=== PATIENT | male | born 1990 | race Caucasian/White ===

== ENCOUNTER 2022-08-10 17:49 | Emergency (ER) | payer OTHER ==
[~2022-08-10] VITALS: Ht 170.2 cm; Wt 104.5 kg
[~2022-08-10 17:49] MED LIST: IBUP100S44 PO; LIDO1DIS2 TD; LYRI75CA PO; PERC7.5T PO; VALI5TAB PO; [UNRECOGNIZED DRUG - REMARK] TD
[2022-08-10] MEDS ORDERED: KETOROLAC 30 MG/ML 1ML VIAL IV ONE (19:40)
[2022-08-10] MEDS ORDERED: OXYCODONE/APAP 5MG/325MG(HOME DOSE PACK) PO ONE (20:45)
[2022-08-10] MEDS ORDERED: MIRA3350 PO (20:45)
[2022-08-10] MEDS ORDERED: PERC5TAB12 PO (20:45)
[2022-08-10 21:20] VITALS: BP 145/76
== END 2022-08-10 21:21 | disposition home or self-care (01) ==
LOC: EDBD 17:49 → M ED 17:49
DX: S82.001A Unspecified fracture of right patella, initial encounter for closed fracture (principal); W17.4XXA Fall from dock, initial encounter; F17.200 Nicotine dependence, unspecified, uncomplicated; M54.50 Low back pain, unspecified; Z88.0 Allergy status to penicillin; Z88.6 Allergy status to analgesic agent; Y92.9 Unspecified place or not applicable; Y93.9 Activity, unspecified; Y99.0 Civilian activity done for income or pay
CPT/HCPCS: 73564; 73590; 96374; 99284; J1885

== ENCOUNTER 2023-11-03 10:41 | Emergency (ER) | payer OTHER ==
[~2023-11-03] VITALS: Ht 170.2 cm; Wt 95.4 kg
[~2023-11-03 10:41] MED LIST changes: +MIRA3350 PO; +PERC5TAB12 PO
[2023-11-03] MEDS ORDERED: TRAM50TA2 PO (10:53)
[2023-11-03] MEDS ORDERED: DOXY50CA51 PO (10:54)
[2023-11-03 11:49] LABS: BASO % 0.4 % (0.0-1.0); EOS # 0.2 10^3/uL (0.0-0.5); EOS % 2.1 % (0.0-3.0); HEMATOCRIT 42.4 % (42.0-52.0); HEMOGLOBIN 14.6 g/dl (13.5-17.5); LYMPH % 42.6 % (24.0-44.0); MEAN CORPUSCULAR HEMOGLOBIN 30.5 pg (27.0-33.0); MEAN CORPUSCULAR HGB CONC 34.4 g/dl (32.0-36.5); MEAN CORPUSCULAR VOLUME 88.7 fl (80.0-96.0); MONO # 0.4 10^3/uL (0.0-0.8); MONO % 5.9 % (2.0-8.0); NEUTROPHILS # 3.4 10^3/uL (1.5-8.5); NEUTROPHILS % 48.9 % (36.0-66.0); PLATELET COUNT, AUTOMATED 264 10^3/uL (150-450); RED BLOOD COUNT 4.78 10^6/uL (4.30-6.10)
[2023-11-03 12:12] LABS: BLOOD UREA NITROGEN 13 MG/DL (9-23); CALCIUM LEVEL 9.3 MG/DL (8.5-10.1); CARBON DIOXIDE LEVEL 29 MMOL/L (20-31); CHLORIDE LEVEL 106 MMOL/L (98-107); CREATININE FOR GFR 0.98 MG/DL (0.70-1.30); GLOMERULAR FILTRATION RATE > 60.0 (>60); GLUCOSE, FASTING 96 MG/DL (60-100); POTASSIUM SERUM 4.6 MMOL/L (3.5-5.1); SODIUM LEVEL 139 MMOL/L (136-145)
[2023-11-03] MEDS: KETOROLAC 30 MG/ML 1ML VIAL IV ONE (12:33)
[2023-11-03] MEDS ORDERED: IBUP-1022 PO (13:40)
[2023-11-03] MEDS ORDERED: PERC5TAB12 PO (13:41)
[2023-11-03] MEDS ORDERED: FLOM0.4C39 PO (13:43)
[2023-11-03] MEDS: TAMSULOSIN 0.4 MG CAP PO ONE (13:58)
[2023-11-03] MEDS: PERCOCET 5MG/325MG TAB PO ONE (13:59)
[2023-11-03 14:06] VITALS: BP 135/64; TEMP 98.1; O2SAT 99
== END 2023-11-03 14:10 | disposition home or self-care (01) ==
LOC: M ED 10:41
DX: N50.811 Right testicular pain (principal); N23 Unspecified renal colic; R31.9 Hematuria, unspecified; F17.200 Nicotine dependence, unspecified, uncomplicated; F10.10 Alcohol abuse, uncomplicated; Z88.0 Allergy status to penicillin; Z88.5 Allergy status to narcotic agent; Z79.1 Long term (current) use of non-steroidal anti-inflammatories (NSAID); Z79.891 Long term (current) use of opiate analgesic; Z79.899 Other long term (current) drug therapy
CPT/HCPCS: 74176; 76870; 80048; 81001; 85025; 93976; 96374; 99284; J1885

== ENCOUNTER → 2023-11-10 | Outpatient (REF) | payer OTHER ==
[~2023-11-10] MED LIST changes: +DOXY50CA51 PO; +FLOM0.4C39 PO; +IBUP-1022 PO; +TRAM50TA2 PO
== END ==
LOC: M LABSMT 11:45
PROVIDERS: ATTEND Urology
DX: N50.811 Right testicular pain (principal)

== ENCOUNTER 2023-11-23 06:10 | Day surgery (SDC) | payer OTHER ==
[~2023-11-23] VITALS: Ht 170.2 cm; Wt 95.3 kg
[~2023-11-23 06:10] MED LIST changes: +AMPH1CAP16 PO; +BUSP10TA PO; +LOSA100T46 PO; +OMEP40CA5 PO; +ROSU10TA6 PO; +TEST1GEL10 SQ
[2023-11-23] MEDS ORDERED: LIDOCAINE 1% SDV 5ML VIAL SC PRN (06:30)
[2023-11-23] MEDS ORDERED: MIDAZOLAM INJ 2MG/2ML VIAL As Ordered ONE (07:00)
[2023-11-23] MEDS ORDERED: fentaNYL 100 MCG/2 ML INJECTION As Ordered ONE (07:00)
[2023-11-23] MEDS ORDERED: LIDOCAINE 2% 100MG/5ML SDV (FOR ANES.) As Ordered ONE (07:01)
[2023-11-23] MEDS ORDERED: ONDANSETRON 4MG 2ML VIAL As Ordered ONE (07:01)
[2023-11-23] MEDS: LR 1,000 ML IV SCH (07:01)
[2023-11-23] MEDS ORDERED: propofoL 200 MG/20 ML VIAL As Ordered ONE (07:01)
[2023-11-23] MEDS ORDERED: KETOROLAC 60MG 2ML VIAL As Ordered ONE (07:01)
[2023-11-23] MEDS ORDERED: BACITRACIN OINTMENT 30GM TUBE As Ordered ONE (07:11)
[2023-11-23] MEDS: LIDOCAINE 1% SDV 30ML VIAL As Ordered ONE (07:11)
[2023-11-23] MEDS: ceFAZolin SOD 2 GM in IV 1 EA IV ONE (07:44)
[2023-11-23] MEDS ORDERED: ACETAMINOPHEN 1000MG 100ML IV BAG As Ordered ONE (07:46)
[2023-11-23] MEDS ORDERED: fentaNYL 100 MCG/2 ML INJECTION IV PRN (08:20)
[2023-11-23] MEDS ORDERED: LR 1,000 ML IV SCH (08:20)
[2023-11-23] MEDS ORDERED: ONDANSETRON 4MG 2ML VIAL IV PRN (08:20)
[2023-11-23] MEDS ORDERED: HYDR-3713 PO (08:22)
[2023-11-23] MEDS: oxyCODONE 5MG TAB PO PRN (08:53)
[2023-11-23] MEDS: HYDROMORPHONE HCL 0.5 MG/ 0.5 ML SYRINGE IV PRN (09:03)
[2023-11-23 10:12] VITALS: BP 137/78; TEMP 97.5; O2SAT 99
== END 2023-11-23 10:26 | disposition home or self-care (01) ==
LOC: M SDC 06:10
PROVIDERS: ATTEND Urology
DX: Q55.22 Retractile testis (principal); N50.811 Right testicular pain; I10 Essential (primary) hypertension; E78.5 Hyperlipidemia, unspecified; G47.33 Obstructive sleep apnea (adult) (pediatric); Z79.899 Other long term (current) drug therapy; Z88.0 Allergy status to penicillin; Z88.5 Allergy status to narcotic agent
CPT/HCPCS: 54640; 54840; J0131; J0665; J0690; J1100; J1170; J1885; J2250; J2405; J3010

== ENCOUNTER → 2023-11-28 | Outpatient (REF) | payer OTHER ==
[~2023-11-28] MED LIST changes: +HYDR-3713 PO
[2023-11-28 17:51] LABS: APPEARANCE, URINE CLEAR (CLEAR); BACTERIA, URINE AUTO NEGATIVE (NEGATIVE); BILIRUBIN, URINE AUTO NEGATIVE (NEGATIVE); BLOOD, URINE BLOOD NEGATIVE (NEGATIVE); COLOR, URINE YELLOW (YELLOW); GLUCOSE, URINE (UA) AUTO NEGATIVE (NEGATIVE); KETONE, URINE AUTO NEGATIVE (NEGATIVE); LEUKOCYTE ESTERASE, URINE AUTO TRACE (NEGATIVE); NITRITE, URINE AUTO NEGATIVE (NEGATIVE); PROTEIN, URINE AUTO NEGATIVE (NEGATIVE); RBC, URINE AUTO 0 /HPF (0-3); SPECIFIC GRAVITY URINE AUTO 1.024 (1.002-1.035); SQUAMOUS EPITHELIAL CELL UR AU 0 /HPF (0-6); WBC, URINE AUTO 2 /HPF (0-3)
== END ==
LOC: M SMT 17:09
PROVIDERS: ATTEND Urology
DX: R35.0 Frequency of micturition (principal)

== ENCOUNTER → 2023-12-07 | Outpatient (REF) | payer OTHER ==
[~2023-12-07] MED LIST changes: +MACR100C43 PO; +OXYB5TAB14 PO; +PYRI1TAB5 PO
== END ==
LOC: M SMT 09:58
PROVIDERS: ATTEND Physician Assistant
DX: N50.811 Right testicular pain (principal)

== ENCOUNTER → 2023-12-08 | Outpatient (REF) | payer OTHER ==
[2023-12-08 17:19] LABS: APPEARANCE, URINE CLEAR (CLEAR); BACTERIA, URINE AUTO NEGATIVE (NEGATIVE); BILIRUBIN, URINE AUTO NEGATIVE (NEGATIVE); BLOOD, URINE BLOOD NEGATIVE (NEGATIVE); COLOR, URINE YELLOW (YELLOW); GLUCOSE, URINE (UA) AUTO NEGATIVE (NEGATIVE); KETONE, URINE AUTO NEGATIVE (NEGATIVE); LEUKOCYTE ESTERASE, URINE AUTO NEGATIVE (NEGATIVE); NITRITE, URINE AUTO NEGATIVE (NEGATIVE); PROTEIN, URINE AUTO NEGATIVE (NEGATIVE); RBC, URINE AUTO 4 /HPF (0-3); SPECIFIC GRAVITY URINE AUTO 1.019 (1.002-1.035); SQUAMOUS EPITHELIAL CELL UR AU 0 /HPF (0-6); UROBILINOGEN, URINE AUTO 0.2 mg/dL (0.0-2.0); WBC, URINE AUTO 1 /HPF (0-3)
== END ==
LOC: M SMT 15:36
PROVIDERS: ATTEND Physician Assistant
DX: Z01.818 Encounter for other preprocedural examination (principal)

== ENCOUNTER 2023-12-11 09:38 | Day surgery (SDC) | payer OTHER ==
[~2023-12-11] VITALS: Ht 170.2 cm; Wt 97.1 kg
[~2023-12-11 09:38] MED LIST changes: -MACR100C43 PO; -OXYB5TAB14 PO; -PYRI1TAB5 PO
[2023-12-11] MEDS: PERCOCET 5MG/325MG TAB PO ONE (12:26)
[2023-12-11] MEDS ORDERED: fentaNYL 100 MCG/2 ML INJECTION As Ordered ONE (13:46)
[2023-12-11] MEDS ORDERED: MIDAZOLAM INJ 2MG/2ML VIAL As Ordered ONE (13:46)
[2023-12-11] MEDS ORDERED: propofoL 200 MG/20 ML VIAL As Ordered ONE (13:46)
[2023-12-11] MEDS ORDERED: ONDANSETRON 4MG 2ML VIAL As Ordered ONE (13:46)
[2023-12-11] MEDS ORDERED: LIDOCAINE 2% 100MG/5ML SDV (FOR ANES.) As Ordered ONE (13:46)
[2023-12-11] MEDS: ceFAZolin 2 GM/D5W 50 ML IV BAG As Ordered ONE (14:15)
[2023-12-11] MEDS: ISOVUE-300 61% 100ML VIAL As Ordered ONE (14:20)
[2023-12-11] MEDS ORDERED: ACETAMINOPHEN 1000MG 100ML IV BAG As Ordered ONE (14:30)
[2023-12-11] MEDS ORDERED: KETOROLAC 60MG 2ML VIAL As Ordered ONE (14:35)
[2023-12-11] MEDS ORDERED: PYRI1TAB5 PO (14:48)
[2023-12-11] MEDS ORDERED: MACR100C43 PO (14:48)
[2023-12-11] MEDS ORDERED: OXYB5TAB14 PO (14:48)
[2023-12-11] MEDS ORDERED: HYDR-3713 PO (14:48)
[2023-12-11] MEDS ORDERED: ONDANSETRON 4MG 2ML VIAL IV PRN (14:55)
[2023-12-11] MEDS ORDERED: fentaNYL 100 MCG/2 ML INJECTION IV PRN (14:55)
[2023-12-11] MEDS ORDERED: LR 1,000 ML IV SCH (14:55)
[2023-12-11] MEDS: oxyCODONE 5MG TAB PO PRN (15:13)
[2023-12-11] MEDS: HYDROMORPHONE HCL 0.5 MG/ 0.5 ML SYRINGE IV PRN (15:17)
[2023-12-11] MEDS: oxyBUTYnin 5 MG TAB PO PRN (15:18)
[2023-12-11 16:27] VITALS: BP 125/60; TEMP 97.3; O2SAT 98
== END 2023-12-11 16:38 | disposition home or self-care (01) ==
LOC: M SDC 09:38
PROVIDERS: ATTEND Urology
DX: N20.1 Calculus of ureter (principal); I10 Essential (primary) hypertension; E78.5 Hyperlipidemia, unspecified; F17.218 Nicotine dependence, cigarettes, with other nicotine-induced disorders; F90.9 Attention-deficit hyperactivity disorder, unspecified type; K21.9 Gastro-esophageal reflux disease without esophagitis; Z79.899 Other long term (current) drug therapy; Z88.0 Allergy status to penicillin; Z88.5 Allergy status to narcotic agent
CPT/HCPCS: 52332; 52352; 76000; 82365; C1769; C2617; J0131; J0690; J1100; J1170; J1885; J2250; J2405; J3010; Q9967

== ENCOUNTER → 2024-08-30 | Outpatient (REF) | payer OTHER, BC ==
[~2024-08-30] MED LIST changes: +DOXY50CA50 PO; -DOXY50CA51 PO; +MACR100C43 PO; +OXYB5TAB14 PO; +PYRI1TAB5 PO; -ROSU10TA6 PO; +ROSU10TA61 PO; +TEST10GE SQ; -TEST1GEL10 SQ
[2024-08-30 18:44] LABS: APPEARANCE, URINE CLEAR (CLEAR); BACTERIA, URINE AUTO NEGATIVE (NEGATIVE); BILIRUBIN, URINE AUTO NEGATIVE (NEGATIVE); BLOOD, URINE BLOOD NEGATIVE (NEGATIVE); COLOR, URINE YELLOW (YELLOW); GLUCOSE, URINE (UA) AUTO NEGATIVE (NEGATIVE); KETONE, URINE AUTO NEGATIVE (NEGATIVE); LEUKOCYTE ESTERASE, URINE AUTO TRACE (NEGATIVE); NITRITE, URINE AUTO NEGATIVE (NEGATIVE); PROTEIN, URINE AUTO NEGATIVE (NEGATIVE); RBC, URINE AUTO 1 /HPF (0-3); SPECIFIC GRAVITY URINE AUTO 1.015 (1.002-1.035); SQUAMOUS EPITHELIAL CELL UR AU 0 /HPF (0-6); UROBILINOGEN, URINE AUTO 0.2 mg/dL (0.0-2.0); WBC, URINE AUTO 0 /HPF (0-3)
== END ==
LOC: M SMT 17:14
PROVIDERS: ATTEND Urology
DX: R31.0 Gross hematuria (principal)